=== PATIENT | male | born 1955 | race Caucasian/White ===

== ENCOUNTER 2018-09-14 10:58 | Day surgery (SDC) | payer OTHER ==
[2018-09-09 15:04] VITALS: BP 123/84
[~2018-09-14] VITALS: Ht 185.4 cm; Wt 79.9 kg
[~2018-09-14 10:58] MED LIST: LOSA25TA6 PO; MULT-751 PO; NAPR220C2 PO
[2018-09-14] MEDS ORDERED: ONDANSETRON ODT 8 MG PO ONE (11:30)
[2018-09-14] MEDS ORDERED: ACETAMINOPHEN 500 MG TABLET PO ONE (11:30)
[2018-09-14] MEDS ORDERED: GABAPENTIN 300 MG CAPSULE PO ONE (11:30)
[2018-09-14] MEDS ORDERED: LACTATED RINGERS 1,000 ML IV SCH (11:33)
[2018-09-14] MEDS ORDERED: MIDAZOLAM 1 MG/ML, 2ML ONE (12:25)
[2018-09-14] MEDS ORDERED: FENTANYL PF 250 MCG/5ML ONE (12:26)
[2018-09-14] MEDS ORDERED: morphine SULFATE/PF 1 MG/ML, 10ML ONE (13:01)
[2018-09-14] MEDS ORDERED: LIDOCAINE/PF 1%, 30ML ONE (13:36)
[2018-09-14] MEDS ORDERED: KETOROLAC 30 MG/1 ML ONE (13:51)
[2018-09-14] MEDS ORDERED: CEFAZOLIN 1,000 MG ONE (14:30)
[2018-09-14] MEDS ORDERED: PROPOFOL 10 MG/ML, 20ML ONE (14:30)
[2018-09-14] MEDS ORDERED: DEXAMETHASONE 4 MG/ML, 1ML ONE (14:30)
[2018-09-14] MEDS ORDERED: FENTANYL PF 100 MCG/2ML ONE ×2 (14:54→16:00)
[2018-09-14] MEDS ORDERED: OXYcodone 5 MG/5 ML ORAL.SOL UDC ONE ×2 (14:55→16:00)
[2018-09-14] MEDS ORDERED: OXYcodone 5 MG/5 ML ORAL.SOL UDC PO PRN (15:00)
[2018-09-14] MEDS ORDERED: PROMETHAZINE 25 MG/ML, 1ML IV PRN (15:00)
[2018-09-14] MEDS ORDERED: MORPHINE SULFATE 4 MG/ML, 1ML IVPush PRN (15:00)
[2018-09-14] MEDS ORDERED: FENTANYL PF 100 MCG/2ML IV PRN (15:00)
[2018-09-14] MEDS ORDERED: HYDROmorphone 2 MG/ML, 1ML IVPush PRN (15:00)
[2018-09-14] MEDS ORDERED: MEPERIDINE/PF 50 MG/ML ONE (16:00)
== END 2018-09-14 16:55 | disposition home or self-care (01) ==
LOC: OUT 10:58
PROVIDERS: ATTEND Orthopaedic Surgery
DX: S83.231A Complex tear of medial meniscus, current injury, right knee, initial encounter (principal); S83.281A Other tear of lateral meniscus, current injury, right knee, initial encounter; M65.861 Other synovitis and tenosynovitis, right lower leg; M25.861 Other specified joint disorders, right knee; I10 Essential (primary) hypertension; X58.XXXA Exposure to other specified factors, initial encounter; Y93.89 Activity, other specified; Y92.89 Other specified places as the place of occurrence of the external cause; Y99.8 Other external cause status
CPT/HCPCS: 27347; 29880; 88305; J0690; J1100; J1885; J2250; J2274; J2704; J3010; J3490; J7120; Q0162